=== PATIENT | female | born 1955 | race Caucasian/White ===

== ENCOUNTER 2019-06-26 10:58 | Outpatient (CLI) | payer OTHER, SELFPAY ==
--- NOTE | ~2019-06-26 | MM_ITS ---
EXAMINATION: MM screening caryn BI w miguelito HISTORY: Screening mammogram TECHNIQUE: Craniocaudal and mediolateral oblique 3-D tomosynthesis images were obtained and synthetic 2-D images were generated. CAD analysis was submitted and interpreted. COMPARISON: 05/26/2016, 10/29/2013, 312 BREAST PARENCHYMAL COMPOSITION: The breasts are almost entirely fatty. FINDINGS: There is no evidence of suspicious mass, calcification, or architectural distortion to sugg est malignancy in either breast. There has been no suspicious interval change. IMPRESSION: 1. No mammographic evidence of malignancy. 2. Recommend routine screening mammography in one year. BI-RADS Category 1: Negative Reviewed, dictated and finalized at location A.
== END 2019-06-26 10:59 | disposition home or self-care (01) ==
LOC: ANHIMG 11:00
PROVIDERS: PCP Family Medicine; Visit Provider Family Medicine
DX: Z12.31 Encounter for screening mammogram for malignant neoplasm of breast (principal)
CPT/HCPCS: 77063; 77067

== ENCOUNTER 2019-11-30 07:00 | Outpatient (NON) | payer MEDICARE, SELFPAY ==
[2019-11-30 22:23] LABS: SARS-CoV-2 RNA PCR Negative
== END 2019-11-30 07:01 ==
PROVIDERS: PCP Family Medicine; Visit Provider Family Medicine
DX: Z20.828 Contact with and (suspected) exposure to other viral communicable diseases (principal)
CPT/HCPCS: 87635; C9803; U0003

== ENCOUNTER 2019-12-25 07:55 | Outpatient (CLI) | payer MEDICARE, SELFPAY ==
--- NOTE | ~2019-12-25 | US_ITS ---
EXAMINATION: US right upper quadrant EXAM DATE: 12/25/2019 08:27 INDICATION: Right upper quadrant pain. TECHNIQUE: Multiple grayscale and Doppler images of the abdomen right upper quadrant were obtained (b y a technologist who performed the scan) and subsequently reviewed. There is no prior study for mary miranda. FINDINGS: The pancreatic head and body are normal in appearance. The pancreatic tail is not visualized. There is echogenic liver parenchyma, hepatic steatosis. There are no focal liver lesions identified. Th ere is no evidence of intrahepatic biliary duct dilation. Portal venous flow was seen in the hepatop edal, normal direction and has normal Doppler waveform. No right-sided hydronephrosis. Common bile duct measures 8 mm, which is considered minimally dilated for patient's age. Gallbladder appears distended but is otherwise unremarkable. No cholelithiasis, wall thickening or pericholecyst ic fluid. No sonographic Enamorado's sign was demonstrated. IMPRESSION: 1. Minimally dilated CBD without intrahepatic biliary duct dilation. Probably not clinically signifi cant but that there is elevated bilirubin then further evaluation with CT abdomen recommended. Imaged portion of pancreatic head is sonographically normal. 2. Hepatic steatosis. Reviewed, dictated and finalized at location A. IMPRESSION: 1. Minimally dilated CBD without intrahepatic biliary duct dilation. Probably not clinically significant but that there is elevated bilirubin then further ev aluation with CT abdomen recommended. Imaged portion of pancreatic head is sono graphically normal. 2. Hepatic steatosis.
== END 2019-12-25 07:56 | disposition home or self-care (01) ==
LOC: ANHIMG 08:01
PROVIDERS: PCP Family Medicine; Visit Provider Family Medicine
DX: K76.0 Fatty (change of) liver, not elsewhere classified (principal)
CPT/HCPCS: 76705

== ENCOUNTER 2020-06-03 10:18 | Outpatient (CLI) | payer MEDICARE, SELFPAY ==
--- NOTE | 2020-06-05 12:48 | WPDHOLTEREM ---
Holter/Event Monitor Holter/Event Monitor Date of procedure: 06/03/20 Procedure Type: 24 hour holter monitor Indications: Palpitations Conclusion: 1. 24 hour holter monitor on 06/03/20. 2. Predominant rhythm is sinus rhythm. HR range 52-128 bpm; average HR 74 bpm. 3. There are 36 premature supraventricular complexes and 2 supraventricular couplets. There is one atrial tachycardia at 129 bpm lasting 4 beats. 4. No premature ventricular complexes. No ventricular tachycardia. 5. No sinoatrial or atrioventricular blocks. No significant pauses greater than 2 seconds. 6. Patient reports symptoms of heart beating which demonstrate sinus rhythm, HR range 58-94 bpm.
== END 2020-06-03 10:19 | disposition home or self-care (01) ==
PROVIDERS: PCP Family Medicine; Visit Provider Physician Assistant Medical
DX: R00.2 Palpitations (principal)
CPT/HCPCS: 93225; 93226

== ENCOUNTER 2020-12-15 05:50 | Emergency (ER) | payer MEDICARE, SELFPAY ==
--- NOTE | ~2020-12-15 | CT_ITS ---
EXAMINATION: CT abdomen pelvis wo con DATE: 12/15/2020 07:23 INDICATION: Flank and lower abdominal pain TECHNIQUE: Computed tomography (CT) of the abdomen and pelvis was performed without intravenous contr ast. The dose-length product (DLP) was 787.60 mGy-cm. Automated exposure control and iterative recons truction technique were employed. COMPARISON: None FINDINGS: Minimal dependent atelectasis is present in the lung bases. The heart size is normal. The l iver, spleen, pancreas, and adrenal glands are normal. There is a 3 mm stone in the neck of the gallb ladder. There is a 2 mm nonobstructing stone of the left kidney. Cysts of the kidneys measure up to 1 2 mm on the left. No stones are present in the ureters or bladder. There is no hydronephrosis or hydr oureter. There is calcified atherosclerosis of the aorta and many of the other arteries. No pathologi chaitanya enlarged abdominal or pelvic lymph nodes are identified. The appendix is normal. There is no fr ee intraperitoneal gas or evidence of bowel obstruction. There is mild lumbar spondylosis. There is a tiny umbilical hernia containing fat. IMPRESSION: 1. No CT correlate for the patient's symptoms. No stones in the ureters or bladder and no hydronephro sis or hydroureter. 2. 2 mm nonobstructing left kidney stone. 3. Stone in the gallbladder neck. Correlate for right upper quadrant tenderness. Reviewed, dictated and finalized at location A. IMPRESSION: 1. No CT correlate for the patient's symptoms. No stones in the ureters or blad mari and no hydronephrosis or hydroureter. 2. 2 mm nonobstructing left kidney stone. 3. Stone in the gallbladder neck. Correlate for right upper quadrant tenderness .
[2020-12-15 05:55] VITALS: BP 159/73; PULSE 80; RESP 18; TEMP 36.8; O2SAT 99
[2020-12-15] MEDS: MORPHINE SULFATE (*CRX) 4 MG/ML INJ IV PUSH (06:24)
[2020-12-15] MEDS: ONDANSETRON INJ 4 MG/2 ML VIAL IV PUSH (06:25)
[2020-12-15 06:31] LABS: Basophils Percent Auto 0.4 % (0.2-1.2); Eosinophils Percent Auto 0.2 % (0-4.4); Hematocrit 36.8 % (37.0-47.0); Immature Granulocyte Absolute 0.04 K/mm3 (0.00-0.031); Immature Granulocyte Percent A 0.4 % (0-0.5); Lymphocytes Absolute Auto 1.26 K/mm3 (0.9-3.2); Lymphocytes Percent Auto 12.7 % (18.3-44.2); Mean Corpuscular HGB Conc 32.6 g/dl (32-36); Mean Corpuscular Hemoglobin 29.9 pg (26-34); Mean Corpuscular Volume 91.8 fl (80-100); Mean Platelet Volume 10.3 fl (7.4-10.4); Monocytes Absolute Auto 0.4 K/mm3 (0.1-0.6); Monocytes Percent Auto 3.6 % (2.6-8.5); Neutrophils Absolute Auto 8.2 K/mm3 (1.3-6.7); Neutrophils Percent Auto 82.7 % (45.5-73.1); Platelet Count Result 337 k/mm3 (150-375); Red Blood Count 4.01 M/mm3 (4.2-5.4); Red Cell Distribution Width 12.5 % (11.5-14.5); White Blood Count 9.9 K/mm3 (4.5-10.0)
--- NOTE | 2020-12-15 06:37 | ED.GENADULT ---
HPI - General Adult General Chief complaint: Abdominal Pain <Woody Colorado MD - Last Filed: 12/15/20 06:40> Stated complaint: abd & back pain, chills, vomiting <Woody Colorado MD - Last Filed: 12/15/20 06:40> Time Seen by Provider: 12/15/20 05:53 <Woody Colorado MD - Last Filed: 12/15/20 06:40> History of Present Illness HPI narrative: Patient is a 65-year-old female who presents ER with diffuse abdominal cramping. Began over the last day. Associate with nausea and vomiting. No urinary frequency urgency or dysuria. No diarrhea. Has had this intermittently over the last year. Has not found a cause for it. Originally was treated with omeprazole and improved however when she started it last week after having a bout of this discomfort did not help. Pain will radiate into her back on occasions. No chest pain or chest pressure or shortness of breath. Has not tried any medications this evening. <Woody Colorado MD - Last Filed: 12/15/20 06:40> Related Data Home medications: Home Medications Medication Instructions Recorded Confirmed zinc acetate 50 mg (zinc) capsule 50 mg PO DAILY 05/25/20 08/26/20 cholecalciferol (vitamin D3) 25 25 mcg PO DAILY 08/26/20 08/26/20 mcg (1,000 unit) capsule <Woody Colorado MD - Last Filed: 12/15/20 06:40> Allergies/adverse reactions: Allergies Allergy/AdvReac Type Severity Reaction Status Date / Time codeine AdvReac Unknown Nausea Verified 12/15/20 05:58 <Woody Colorado MD - Last Filed: 12/15/20 06:40> Review of Systems Review of Systems: All systems reviewed & are unremarkable except as noted in HPI and below <Woody Colorado MD - Last Filed: 12/15/20 06:40> Constitutional: Constitutional: Reports chills, Denies fever(s) and Denies weakness <Woody Colorado MD - Last Filed: 12/15/20 06:40> ENT: Denies nasal congestion and Denies sore throat <Woody Colorado MD - Last Filed: 12/15/20 06:40> Cardiovascular: Cardiovascular: Denies chest pain, Denies rapid heart rate and Denies radiating jaw, neck or arm pain <Woody Colorado MD - Last Filed: 12/15/20 06:40> Respiratory: Respiratory: Denies cough and Denies dyspnea <Woody Colorado MD - Last Filed: 12/15/20 06:40> Gastrointestinal: Gastrointestinal: Reports abdominal pain, Reports bloating, Denies constipation, Denies diarrhea, Reports nausea and Reports vomiting <Woody Colorado MD - Last Filed: 12/15/20 06:40> Genitourinary: Genitourinary: Denies nocturia, Denies dysuria and Denies flank pain <Woody Colorado MD - Last Filed: 12/15/20 06:40> PMFSH Past Medical History Medical History: Medical History (Updated 12/15/20 @ 09:07 by Brittany Farooq MD) Esophageal reflux Hyperlipemia Overweight Overweight (BMI 25.0-29.9) Prediabetes SVT (supraventricular tachycardia) <Woody Colorado MD - Last Filed: 12/15/20 06:40> Surgical History Surgical History: Surgical History (Updated 12/15/20 @ 06:39 by Woody Colorado MD) History of tonsillectomy <Woody Colorado MD - Last Filed: 12/15/20 06:40> Family History Family History: Family History Father Diabetes mellitus Hypertension Family history of elevated blood lipids Family history of coronary artery disease Family history of hearing loss Mother Hypertension Family history of elevated blood lipids Family history of hearing loss Sibling Diabetes mellitus <Woody Colorado MD - Last Filed: 12/15/20 06:40> Social History Social History: Social History Smoking end date: 04/17/86 Alcohol intake: current <Woody Colorado MD - Last Filed: 12/15/20 06:40> Exam Narrative: GENERAL: Well-appearing, well-nourished, and in no acute distress. HEAD: Normocephalic, atraumatic. EYES: PERRL and EOMI. CHEST: Clear to auscultation. No respiratory d
[2020-12-15 06:52] LABS: Add Urine Microscopic? YES; Appearance Urine Clear (Clear); Bacteria Urine Trace /hpf; Bilirubin Urine Negative (Negative); Blood Urine Negative (Negative); Color Urine Yellow (Yellow); Glucose Urine UA Negative (Negative); Ketones Urine 1+ mg/dL (Negative); Leukocyte Esterase Ur Negative LEU/UL (Negative); Mucus Urine Few /lpf; Nitrate Urine Negative (Negative); Protein Urine 1+ mg/dL (Negative); RBC Urine 21-50 /hpf (0-2); Specific Grav Ur 1.024 (1.001-1.035); Squamous Epithelial Cell Urine Occasional /hpf (Few); Urobilinogen Urine Negative mg/dL (<2.0); WBC Urine 0-3 /hpf
[2020-12-15 07:02] VITALS: BP 159/73; PULSE 78; RESP 18; O2SAT 97
[2020-12-15 07:08] LABS: Alanine Aminotransferase 15 U/L (4-35); Albumin Level 4.7 g/dL (3.5-5.1); Alkaline Phosphatase 70 U/L (38-126); Anion Gap 11 mmol/L (8-16); Aspartate Amino Transferase 28 U/L (14-36); Bilirubin,Total 0.5 mg/dL (0.2-1.3); Blood Urea Nitrogen 20 mg/dL (7-17); Calcium 9.4 mg/dL (8.4-10.2); Carbon Dioxide 26 mmol/L (22-30); Chloride 101 mmol/L (98-107); Estimated CRCL calculation 64 ml/min; Estimated Glomerular Filt Rate > 60; Glucose 142 mg/dL (65-110); Lipase 147 U/L (23-300); Potassium 3.5 mmol/L (3.4-5.0); Sodium 138 mmol/L (137-145)
[2020-12-15 09:30] VITALS: BP 148/76; PULSE 74; RESP 18; O2SAT 100
== END 2020-12-15 09:33 | disposition home or self-care (01) ==
PROVIDERS: Emergency Medicine; Emergency Provider Emergency Medicine; PCP Family Medicine
DX: R10.9 Unspecified abdominal pain (principal); E78.5 Hyperlipidemia, unspecified; E66.3 Overweight; R73.03 Prediabetes; I47.1 Supraventricular tachycardia; Z87.19 Personal history of other diseases of the digestive system; Z68.25 Body mass index [BMI] 25.0-25.9, adult
CPT/HCPCS: 36415; 74176; 80053; 81001; 83690; 85025; 96374; 96375; 99284; J2270; J2405

== ENCOUNTER 2020-12-23 01:15 | Day surgery (SDC) | payer MEDICARE, SELFPAY ==
[2020-12-22 15:15] VITALS: BMI 26.3
[2020-12-23] VITALS (8 sets, daily range): BP systolic 125–177; BP diastolic 54–72; PULSE 54–83; RESP 15–20; TEMP 36.3–36.7; O2SAT 95–100
[2020-12-23] MEDS: LACTATED RINGERS 1,000 ML 30 ML IV CONT ×2 (07:12→11:51)
[2020-12-23] MEDS: ACETAMINOPHEN 500 MG TABLET 1000 MG PO (08:50)
[2020-12-23] MEDS: KETOROLAC 15 MG/ML VIAL (*BKC) IV PUSH ×2 (09:04→13:03)
[2020-12-23 09:14] LABS: Glucose Point of Care 85 mg/dl (65-105)
--- NOTE | 2020-12-23 09:14 | WPDANESEPPF ---
Anes - Initial Pre Proc Eval Procedure: Operation Date: 12/23/20 10:30 Proposed Procedures p Laparoscopic Cholecystectomy - Romina Jon MD Date/Time: 12/23/20 09:14 Surgeon: Romina Jon MD Pre Op Diagnosis: chronic cholecystitis with cholelithiasis Patient Data Age: 65 Gender: F Height: 1.68 m Weight: 72.4 kg Last Vital Signs Temp 36.7 C 12/23/20 08:35 Pulse 70 12/23/20 08:35 Resp 16 12/23/20 08:35 BP 125/72 12/23/20 08:35 Pulse Ox 100 12/23/20 08:35 Allergies Allergy/AdvReac Type Severity Reaction Status Date / Time codeine AdvReac Unknown Nausea, Verified 12/23/20 08:46 vomiting Home Medications Medication Instructions Recorded Confirmed Type aspirin 81 mg tablet,delayed 81 mg PO DAILY #90 tablet 10/10/19 12/23/20 Rx release fexofenadine 180 mg tablet 180 mg PO DAILY PRN #90 tablet 10/10/19 12/23/20 Rx alprazolam 0.25 mg tablet 0.25 mg PO TID PRN #30 tablet 12/19/19 12/23/20 Rx pantoprazole 40 mg tablet,delayed 40 mg PO QAM #180 tablet 12/07/20 12/23/20 Rx release sucralfate 1 gram tablet 1 g PO Q4H PRN #90 tablet 12/18/20 12/23/20 Rx amoxicillin 500 mg PO TID 12/22/20 12/23/20 History dicyclomine 20 mg PO QID PRN 12/22/20 12/23/20 History metformin 500 mg PO QPM 12/22/20 12/23/20 History simvastatin 10 mg PO HS 12/22/20 12/23/20 History trazodone 100 mg PO HS 12/22/20 12/23/20 History Laboratory Tests 12/23/20 09:12 POC Capillary Glucose Pending Patient hx anesthesia problems: none Family hx anesthesia problems: none PMFSH Past Medical History Medical History (Updated 12/23/20 @ 09:09 by Radha Maya) Esophageal reflux Hyperlipemia Overweight Overweight (BMI 25.0-29.9) Prediabetes SVT (supraventricular tachycardia) Surgical History Surgical History (Updated 12/22/20 @ 13:45 by Marilyn Gonzalez) History of bladder suspension procedure 2006 History of tonsillectomy Family History Family History Father Diabetes mellitus Hypertension Family history of elevated blood lipids Family history of coronary artery disease Family history of hearing loss Parkinson disease Mother Hypertension Family history of elevated blood lipids Family history of hearing loss Sibling Diabetes mellitus Social History Social History (Updated 12/22/20 @ 13:47 by Marilyn Gonzalez) Smoking packs per day: 2.5 Smoking cigarettes per day: 50.0 Years smoked: 20 Smoking pack-years: 50.00 Smoking status: Former smoker Tobacco type: cigarettes Smoking end date: 10/16/87 Alcohol intake: current Substance use: never Living arrangements: with family Additional living arrangements comments: Spiritual care concerns: No Anes - Eval Final PreProcedure Day of Procedure 12/23/20 09:14 Patient weight: overweight Heart: regular rate and rhythm Lungs: clear to auscultation and normal air movement Airway: Mallampati scale class II Neurological: alert and oriented Last oral intake: >/= 8 hours ASA classification: III Emergent: no Anesthetic plan: proceed Anesthesia type and monitoring: general ETT and standard monitoring Informed Consent: The patient's anesthetic plan and its attendant risks and benefits were discussed with the patient/family/POA. Questions were solicited and answers provided to the satisfaction of the patient/family/POA.
[2020-12-23 09:46] LABS: Amylase 94 U/L (30-110)
--- NOTE | 2020-12-23 10:22 | WPDHPUPDATE1 ---
History and Physical Update Update Date/Time: 12/23/20 10:22 History and Physical has been reviewed, including an updated exam of the patient. There are NO changes in the patient's condition. Risks, benefits, and alternatives have been discussed and questions answered. Patient agrees to proceed with procedure.
[2020-12-23] MEDS: ceFAZolin 2 GM/D5W 50 ML 2 GM/50 ML BAG IVPB (10:59)
--- NOTE | 2020-12-23 11:49 | W.PM.PROC2 ---
Procedure Note - Detailed Date of Procedure 12/23/20 Pre-op Diagnosis chronic cholecystitis with cholelithiasis Post-op Diagnosis same Procedure Performed laparoscopic cholecystectomuy Surgeon Romina Jon MD Anesthesia general Indications 65 y/o F c chronic cholecystitis, cholelithiasis Findings chronic cholecystitis Description of Procedure The patient was taken to the operating room placed in the supine position. After adequate induction of general anesthesia, the patient was prepped and draped in normal sterile fashion. A time-out was then performed to verify the patient's identity as well as the procedure being performed. I then made a 5 mm incision in the infraumbilical region. Through this, a Veress needle was placed into the peritoneal cavity and CO2 gas was then insufflated. After adequate pneumoperitoneum was achieved, the Veress needle was removed and a 5 mm optiview trocar was placed through this incision under direct visualization. I then placed the laparoscope through this trocar site and under direct visualization placed a further 12 mm subxiphoid port as well as 2 additional 5 mm ports in the right upper abdomen. The gallbladder was then identified and was noted to be moderately inflamed. I was able to place a grasper at the dome of the gallbladder and this was retracted anterior and cephalad up over the liver. A 2nd retractor was then placed at the infundibulum and retracted laterally, this allowed visualization of the triangle of Calot. I then was able to visualize the cystic duct in its entirety from its proximal insertion into the gallbladder, to its distal junction with the common hepatic/common bile duct junction. At this point, I carefully skeletonized the proximal cystic duct with the [place] dissector. I then clipped and transected the proximal cystic duct. Next I visualized the cystic artery. Again the artery was skeletonized, clipped, and transected. I then used the Bovie cautery to take down the peritoneal attachments of the gallbladder off the liver bed. This was somewhat difficult given the amount of inflammation in the posterior space. Once the gallbladder specimen was completely detached, an endo-pouch was placed through the 12 mm port site. I then placed the gallbladder specimen into the Endo pouch and removed the endo-pouch from the 12 mm port site. The specimen will now be sent to pathology for further review. I then copiously irrigated the right upper quadrant. Hemostasis was noted in the liver bed, the clips were noted to be in good position on both the cystic duct stump and the cystic artery stump. No other pathology was noted in the right upper quadrant. I then moved the laparoscope to the subxiphoid port. No iatrogenic injury or other pathology was noted in the lower abdomen. I then closed the 12 mm trocar site under direct visualization using the Dereje cone and 0 Vicryl suture. At this point, the abdomen was desufflated and all ports removed. All port sites were then closed with 4.O Monocryl subcuticular sutures. Dermabond was placed on each incision. The patient tolerated the procedure well, was extubated in the operating room postoperative and will be transferred to the recovery room in stable condition Estimated Blood Loss 5 Drains No Packing No Pathology yes Complications No immediate complications Condition stable Disposition PACU
[2020-12-23 12:08] LABS: Glucose Point of Care 133 mg/dl (65-105)
[2020-12-23] MEDS: fentaNYL CITRATE INJ (*CRX) 100 MCG/2 ML VIAL 25 MCG IV PUSH (12:24)
[2020-12-23] MEDS: ONDANSETRON HCL ODT 4 MG TABLET SUBLINGUAL (13:47)
== END 2020-12-23 13:54 | disposition home or self-care (01) ==
PROVIDERS: PCP Family Medicine; Visit Provider Surgery
PROC: 0FT44ZZ Resection of Gallbladder, Percutaneous Endoscopic Approach (ICD-10-PCS; CPT 47562; principal; 2020-12-23 10:30)
DX: K81.1 Chronic cholecystitis (principal); E78.5 Hyperlipidemia, unspecified; R73.03 Prediabetes; I47.1 Supraventricular tachycardia; K21.9 Gastro-esophageal reflux disease without esophagitis; Z79.82 Long term (current) use of aspirin; Z79.84 Long term (current) use of oral hypoglycemic drugs; Z87.891 Personal history of nicotine dependence
CPT/HCPCS: 47562; 36415; 82150; 82948; 86850; 86900; 86901; 88304; A9270; J0330; J0690; J1100; J1885; J2250; J2405; J2704; J3010; J7030; J7120

== ENCOUNTER 2020-12-26 08:04 | Emergency (ER) | payer MEDICARE, SELFPAY ==
--- NOTE | ~2020-12-26 | XR_ITS ---
EXAMINATION: XR abdomen/kub 1V EXAM DATE: 12/26/2020 08:58 INDICATION: Gallbladder removal 12/23/20. Abdominal pain, nausea. TECHNIQUE: Frontal projection of the upper abdomen, frontal projection lower abdomen/pelvis for inter pretation. There is no prior study for comparison. FINDINGS: Moderate amount of stool in the ascending colon, otherwise small amount of stool and gas. T here are cholecystectomy clips. No small bowel dilation, nonobstructive bowel gas pattern. Calcifications in the pelvis are believed to be phleboliths. There is no organomegaly suspected. The bones are unremarkable. Chondral cartilage calcifications. IMPRESSION: Unremarkable abdomen x-ray exam. Reviewed, dictated and finalized at location A.
[2020-12-26 08:16] VITALS: BP 139/75; PULSE 93; RESP 20; TEMP 36.8; O2SAT 98
--- NOTE | 2020-12-26 08:42 | ED.NAVMDI ---
HPI - Nausea/Vomiting/Diarrhea General Chief complaint: Nausea/Vomiting/Diarrhea Stated complaint: Complications from Gal bladder surgery Source: patient Mode of arrival: ambulatory Limitations: no limitations History of Present Illness HPI Narrative: Patient is a 65-year-old female who presents with nausea and vomiting. She reports having laparoscopic cholecystectomy on 12/23/[address] Jon. Patient reports pain which has somewhat resolved on with use of tramadol. Patient now reports mild pain and continuous nausea. She reports vomiting multiple times yesterday. Patient has a prescription for Zofran but has not used. She continues to take tramadol for pain. Patient denies having bowel movement post surgery. She reports she has stayed on a very clear liquid diet. She reports taking amoxicillin for blood in urine . MD elicited complaint: nausea and vomiting Related Data Home Medications Medication Instructions Recorded Confirmed amoxicillin 500 mg PO TID 12/22/20 12/26/20 dicyclomine 20 mg PO QID PRN 12/22/20 12/26/20 metformin 500 mg PO QPM 12/22/20 12/26/20 simvastatin 10 mg PO HS 12/22/20 12/26/20 trazodone 100 mg PO HS 12/22/20 12/26/20 Allergies Allergy/AdvReac Type Severity Reaction Status Date / Time codeine AdvReac Unknown Nausea, Verified 12/23/20 08:46 vomiting Review of Systems Review of Systems: CONSTITUTIONAL: Denies fever, chills, or sweats. EYES: Denies visual changes, redness, or discharge. ENT: Denies rhinorrhea, congestion, sore throat, or otalgia. CARDIOVASCULAR: Denies chest pain, palpitations, or edema. RESPIRATORY: Denies cough or dyspnea. GASTROINTESTINAL: Reports abdominal pain, nausea and vomiting GENITOURINARY: Denies dysuria or hematuria. SKIN: Denies rash or itching. MUSCULOSKELETAL: Denies back pain, joint pain, or myalgia. NEUROLOGIC: Denies headache, numbness, dizziness, or weakness. PSYCHIATRIC: Denies anxiety or depression. [facility] Past Medical History Medical History Esophageal reflux Hyperlipemia Overweight Overweight (BMI 25.0-29.9) Prediabetes SVT (supraventricular tachycardia) Surgical History Surgical History History of bladder suspension procedure 2006 History of tonsillectomy Hx laparoscopic cholecystectomy Family History Family History Father Diabetes mellitus Hypertension Family history of elevated blood lipids Family history of coronary artery disease Family history of hearing loss Parkinson disease Mother Hypertension Family history of elevated blood lipids Family history of hearing loss Sibling Diabetes mellitus Social History Social History (Updated 12/22/20 @ 13:47 by Marilyn Gonzalez) Smoking packs per day: 2.5 Smoking cigarettes per day: 50.0 Years smoked: 20 Smoking pack-years: 50.00 Smoking status: Former smoker Tobacco type: cigarettes Smoking end date: 10/16/87 Alcohol intake: current Substance use: never Additional living arrangements comments: Spiritual care concerns: No Comments At the time of signature, I have reviewed and agree with nursing past medical, surgical, social, and family history unless otherwise noted. Please see nursing chart for further information. There is no relevant family history pertinent to the presenting complaint. Exam Narrative: GENERAL: Well-appearing, well-nourished, and in no acute distress. HEAD: Normocephalic, atraumatic. EYES: EOMI. No redness or drainage. Conjunctiva are normal. ENT: Mucous membranes pink and moist. NECK: AROM. Supple. No lymphadenopathy. CHEST: No respiratory distress. HEART: Regular rate and rhythm. GI: Soft, mild tenderness no rebound or guarding. No distention. Bowel sounds hypoactive. MUSCULOSKELETAL: No bony tenderness. EXTREMITIES: N
[2020-12-26] MEDS: ONDANSETRON HCL ODT 4 MG TABLET PO (09:46)
--- NOTE | 2020-12-26 10:52 | PC.NURSE ---
This RN attempted to contact Dr. Arroyo multiple times on exchange at [phone]--number having technical difficulties at this time and disconnected after waiting on hold for approximately 20 minutes and twice. Called physicians personal cell phone number 3 times over the course of an hour before being answered. Called and spoke with warehouse distribution manager, Adriane who confirmed phone numbers twice and let her know that this facility has been attempting to speak with the surgeon transition manager for over an hour. plastic tubing insulation supervisor checked in OR to see if surgeon available at this time, surgeon not in OR when checked, she also checked ICU and did not locate surgeon.
== END 2020-12-26 10:45 | disposition short-term general hospital (02) ==
PROVIDERS: Emergency Provider Nurse Practitioner; PCP Family Medicine
DX: R11.2 Nausea with vomiting, unspecified (principal); G89.18 Other acute postprocedural pain; E78.5 Hyperlipidemia, unspecified; R73.03 Prediabetes
CPT/HCPCS: 74018; 81003; 87086; 99213; A9270; G0463

== ENCOUNTER 2020-12-26 11:21 | Emergency (ER) | payer MEDICARE, SELFPAY ==
[2020-12-26] VITALS (17 sets, daily range): BP systolic 120–168; BP diastolic 66–87; PULSE 74–100; RESP 12–18; TEMP 35.7; O2SAT 94–99
--- NOTE | ~2020-12-26 | CT_ITS ---
EXAMINATION: CT abdomen w con DATE: 12/26/2020 15:02 INDICATION: Abdominal pain and elevated labs post surgical. TECHNIQUE: Computed tomography (CT) of the abdomen and pelvis was performed with 100 cc Omnipaque 350 intravenous contrast. The dose-length product was 565.37 mGy-cm. Automated exposure control and iter ative reconstruction technique were employed. COMPARISON: CT dated 12/15/2020 FINDINGS: Trace right pleural effusion. Right lower lobe atelectasis. There are surgical changes cons istent with right cholecystectomy. Small amount of perihepatic fluid. Small amount of free air. No di screte loculated fluid collection to suggest abscess. Nonobstructive bowel gas pattern. Moderate devin arron distention. Mild atherosclerosis without aneurysm. No lymphadenopathy. The liver, spleen, pancreas, adrenal glands and kidneys are unremarkable. IMPRESSION: 1. Small amount of ascites and free air, likely postoperative status post recent cholecystectomy. 2: Small right pleural effusion with right lower lobe atelectasis. Reviewed, dictated and finalized at location A. IMPRESSION: 1. Small amount of ascites and free air, likely postoperative status post recen t cholecystectomy. 2: Small right pleural effusion with right lower lobe atelectasis.
[2020-12-26 12:00] LABS: Basophils Percent Auto 0.2 % (0.2-1.2); Eosinophils Percent Auto 0.2 % (0-4.4); Hematocrit 37.8 % (37.0-47.0); Hemoglobin 12.1 g/dL (12.0-15.0); Immature Granulocyte Percent A 0.8 % (0-0.5); Lymphocytes Absolute Auto 1.26 K/mm3 (0.9-3.2); Lymphocytes Percent Auto 9.5 % (18.3-44.2); Mean Corpuscular Hemoglobin 29.4 pg (26-34); Monocytes Absolute Auto 0.6 K/mm3 (0.1-0.6); Monocytes Percent Auto 4.8 % (2.6-8.5); Neutrophils Absolute Auto 11.3 K/mm3 (1.3-6.7); Neutrophils Percent Auto 84.5 % (45.5-73.1); Platelet Count Result 526 k/mm3 (150-375); Red Blood Count 4.11 M/mm3 (4.2-5.4); Red Cell Distribution Width 12.4 % (11.5-14.5); White Blood Count 13.3 K/mm3 (4.5-10.0)
[2020-12-26 12:11] LABS: Alanine Aminotransferase 177 U/L (4-35); Albumin Level 4.3 g/dL (3.5-5.1); Alkaline Phosphatase 287 U/L (38-126); Anion Gap 12 mmol/L (8-16); Aspartate Amino Transferase 79 U/L (14-36); Bilirubin,Total 2.4 mg/dL (0.2-1.3); Blood Urea Nitrogen 15 mg/dL (7-17); Calcium 9.5 mg/dL (8.4-10.2); Carbon Dioxide 30 mmol/L (22-30); Chloride 93 mmol/L (98-107); Estimated CRCL calculation 56 ml/min; Estimated Glomerular Filt Rate > 60; Glucose 134 mg/dL (65-110); Lipase 82 U/L (23-300); Potassium 4.2 mmol/L (3.4-5.0); Sodium 135 mmol/L (137-145)
[2020-12-26 12:16] LABS: Add Urine Microscopic? YES; Appearance Urine Clear (Clear); Bacteria Urine Trace /hpf; Bilirubin Urine Negative (Negative); Blood Urine 1+ (Negative); Color Urine Amber (Yellow); Glucose Urine UA Negative (Negative); Ketones Urine 1+ mg/dL (Negative); Leukocyte Esterase Ur Negative LEU/UL (Negative); Mucus Urine Rare /lpf; Nitrate Urine Negative (Negative); Protein Urine 2+ mg/dL (Negative); Specific Grav Ur 1.021 (1.001-1.035); Squamous Epithelial Cell Urine Occasional /hpf (Few); Urobilinogen Urine Negative mg/dL (<2.0)
[2020-12-26] MEDS: ONDANSETRON INJ 4 MG/2 ML VIAL IV PUSH (16:32)
--- NOTE | 2020-12-27 15:23 | ED.GENADULT ---
HPI - General Adult General Chief complaint: Abdominal Pain Stated complaint: abd pain Time Seen by Provider: 12/26/20 14:25 Source: patient Mode of arrival: ambulatory Limitations: no limitations History of Present Illness HPI narrative: Patient postop cholecystectomy 12-23-[address] Jon presents with chief complaint of increased nausea and red reported abdominal pain in the past few days. Patient states that she was told to come to the emergency department for evaluation. Patient denies fever, chills patient has been able to drink some Pedialyte but has been experiencing nausea and some vomiting when she tries to eat foods. Patient denies blockage or changes in bowels or urination. Related Data Home Medications Medication Instructions Recorded Confirmed amoxicillin 500 mg PO TID 12/22/20 12/26/20 dicyclomine 20 mg PO QID PRN 12/22/20 12/26/20 metformin 500 mg PO QPM 12/22/20 12/26/20 simvastatin 10 mg PO HS 12/22/20 12/26/20 trazodone 100 mg PO HS 12/22/20 12/26/20 Allergies Allergy/AdvReac Type Severity Reaction Status Date / Time codeine AdvReac Unknown Nausea, Verified 12/23/20 08:46 vomiting Review of Systems Review of Systems: CONSTITUTIONAL: Denies fever, chills, or sweats. EYES: Denies visual changes, redness, or discharge. ENT: Denies rhinorrhea, congestion, sore throat, or otalgia. CARDIOVASCULAR: Denies chest pain, palpitations, or edema. RESPIRATORY: Denies cough or dyspnea. GASTROINTESTINAL: Reports abdominal pain, nausea, vomiting denies diarrhea. GENITOURINARY: Denies dysuria or hematuria. SKIN: Denies rash or itching. MUSCULOSKELETAL: Denies back pain, joint pain, or myalgia. NEUROLOGIC: Denies headache, numbness, dizziness, or weakness. PSYCHIATRIC: Denies anxiety or depression. [facility] Past Medical History Medical History Esophageal reflux Hyperlipemia Overweight Overweight (BMI 25.0-29.9) Prediabetes SVT (supraventricular tachycardia) Surgical History Surgical History History of bladder suspension procedure 2006 History of tonsillectomy Hx laparoscopic cholecystectomy Family History Family History Father Diabetes mellitus Hypertension Family history of elevated blood lipids Family history of coronary artery disease Family history of hearing loss Parkinson disease Mother Hypertension Family history of elevated blood lipids Family history of hearing loss Sibling Diabetes mellitus Social History Social History (Updated 12/22/20 @ 13:47 by Marilyn Gonzalez) Smoking packs per day: 2.5 Smoking cigarettes per day: 50.0 Years smoked: 20 Smoking pack-years: 50.00 Smoking status: Former smoker Tobacco type: cigarettes Smoking end date: 10/16/87 Alcohol intake: current Substance use: never Additional living arrangements comments: Spiritual care concerns: No Exam Narrative: GENERAL: Well-appearing, well-nourished, and in no acute distress. HEAD: Normocephalic, atraumatic. EYES: PERRLA and EOMI. CHEST: Clear to auscultation. No respiratory distress. No wheezes rales or rhonchi HEART: Regular rate and rhythm. ABDOMEN: Surgical incision masters to the patient's abdomen which appear to be healing well. Soft, tenderness to palpation of right upper quadrant, active bowel sounds. EXTREMITIES: Normal range of motion. No edema. SKIN: Warm, dry, no rash. NEURO: No focal deficits. Alert and oriented x3. PSYCH: Normal mood and affect. Course Vital Signs Vital signs: Vital Signs Temperature 96.2 F L 12/26/20 11:44 Pulse Rate 100 12/26/20 11:44 Respiratory Rate 18 12/26/20 11:44 Blood Pressure 132/76 12/26/20 11:44 Pulse Oximetry 97 12/26/20 11:44 Temperature 96.2 F L 12/26/20 11:44 Pulse Rate 96 12/26/20 18:40 Respiratory Rate 14 12/26/20 18:4
== END 2020-12-26 18:45 | disposition home or self-care (01) ==
PROVIDERS: Emergency Medicine; Emergency Provider Emergency Medicine; PCP Family Medicine
DX: R11.0 Nausea (principal); R10.9 Unspecified abdominal pain; Z98.890 Other specified postprocedural states; E78.5 Hyperlipidemia, unspecified; K21.9 Gastro-esophageal reflux disease without esophagitis; R73.03 Prediabetes; Z79.84 Long term (current) use of oral hypoglycemic drugs; E66.3 Overweight; Z68.25 Body mass index [BMI] 25.0-25.9, adult
CPT/HCPCS: 36415; 74018; 74160; 80053; 81001; 81003; 83690; 85025; 87086; 96374; 99284; A9270; J2405; Q9967

== ENCOUNTER 2020-12-29 08:24 | Outpatient (NON) | payer MEDICARE, SELFPAY ==
[2021-01-01 07:21] LABS: H pylori Ag Stool Not Detected (Not Detected)
== END 2020-12-29 08:25 | disposition home or self-care (01) ==
PROVIDERS: PCP Family Medicine; Visit Provider Surgery
DX: R10.11 Right upper quadrant pain (principal); R11.0 Nausea
CPT/HCPCS: 87338

== ENCOUNTER 2020-12-31 06:46 | Outpatient (CLI) | payer MEDICARE, SELFPAY ==
--- NOTE | ~2020-12-31 | MR_ITS ---
EXAMINATION: MR MRCP wo/w con/w 3D wo ind DATE: 12/31/2020 08:05 INDICATION: Right upper quadrant pain, cholecystectomy TECHNIQUE: Magnetic resonance imaging (MRI) of the abdomen was performed without and with intravenous contrast. Sequences included coronal T2-weighted SS-FSE ARC, coronal T2-weighted FS SS-FSE, coronal T2-weighted 2D FS FIESTA, Water:Coronal LAVA-Flex, sagittal T2-weighted SS-FSE ARC, axial SSFSE ARC, axial 3D DualEcho, axial DWI B=600, axial T1-weighted LAVA, FAT:Coronal LAVA-Flex, and coronal in and opposed phase LAVA-Flex. Thick-slab T2-weighted FRFSE-XL images were obtained for magnetic resonance cholangiopancreatography (MRCP). Maximum intensity projection 3-D reconstructions of the volumetric data were created by the technologist. Postcontrast sequences included a time course of axial T1-weig hted LAVA, FAT:Coronal LAVA-Flex, coronal in and opposed phase LAVA-Flex, and Water:Coronal LAVA-Flex . COMPARISON: CT, 12/26/2020 CONTRAST: Multihance, 14 cc FINDINGS: ABDOMEN MRI: Changes of cholecystectomy are again noted. Right upper quadrant ascites has nearly comp letely resolved since the comparison CT. The liver, spleen, pancreas, and adrenal glands are normal. There is a 13 mm cyst of the left kidney. The right kidney is unremarkable. There are no pathological ly enlarged abdominal lymph nodes. There are no dilated loops of bowel. Respiratory motion artifact l imits the postcontrast sequences. No definite abnormal contrast enhancement is identified. ABDOMEN MRCP: There is no intrahepatic or extrahepatic biliary dilatation. No stones or stricture are identified in the common bile duct. The pancreatic duct is normal in caliber. IMPRESSION: 1. Changes of cholecystectomy without biliary dilatation. Near complete resolution of postoperative a scites. Reviewed, dictated and finalized at location A. IMPRESSION: 1. Changes of cholecystectomy without biliary dilatation. Near complete resolut ion of postoperative ascites.
== END 2020-12-31 06:47 | disposition home or self-care (01) ==
PROVIDERS: PCP Family Medicine; Visit Provider Surgery
DX: R10.11 Right upper quadrant pain (principal); R11.0 Nausea; Z90.49 Acquired absence of other specified parts of digestive tract
CPT/HCPCS: 74183; 76376; A9577

== ENCOUNTER 2021-09-07 15:30 | Outpatient (CLI) | payer MEDICARE, SELFPAY ==
--- NOTE | ~2021-09-07 | DEXA_ITS ---
Bone Density Report Name: JOSEMANUEL WALSH Age: 65 Sex: Female Ethnicity: White Date of : 1955 Indication: postmenopausal; screening for osteoporosis; parental hip fracture; Referring Provider: BULMARO, AVELINO [place] Study: Bone densitometry was performed. Exam Date: September 07, 2021 Accession number: [id number] Bone Density: Region BMD T-score Z-score Classification AP Spine(L1-L4) 0.992 -0.5 1.4 Normal Femoral Neck (Left) 0.915 0.6 2.2 Normal Total Hip (Left) 0.928 -0.1 1.2 Normal Femoral Neck (Right) 0.894 0.4 2.0 Normal Total Hip (Right) 0.931 -0.1 1.2 Normal Total Hip Mean 0.929 -0.1 1.2 Normal World Health Organization criteria for BMD impression classify patients as: Normal (T-score at or above -1.0), Osteopenia (T-score between -1.0 and -2.5), or Osteoporosis (T-score at or below -2.5). 10-year Fracture Risk: FRAX not reported because: All T-scores for Spine Total, Hip Total, Femoral Neck at or above -1.0 Previous Exams: Region Exam Age BMD T-score BMD Change BMD Change Date g/cm2 vs Baseline vs Previous AP Spine (L1-L4) 09/07/2021 65 0.992 -0.5 -0.054 (-5.1%) 0.022 (2.2%) 05/26/2016 60 0.970 -0.7 -0.075 (-7.2%) -0.075 (-7.2%) 07/19/2011 55 1.045 0.0 Total Hip(Left) 09/07/2021 65 0.928 -0.1 -0.111 (-10.7% -0.054 (-5.5%) 05/26/2016 60 0.983 0.3 -0.057 (-5.5%) -0.057 (-5.5%) 07/19/2011 55 1.039 0.8 Total Hip(Right) 09/07/2021 65 0.931 -0.1 -0.106 (-10.2% -0.059 (-6.0%) 05/26/2016 60 0.990 0.4 -0.047 (-4.5%) -0.047 (-4.5%) 07/19/2011 55 1.036 0.8 *Denotes significance at 95% confidence level, LSC for AP Spine = 0.022 g/cm2, LSC for Total Hip = 0.027 g/cm2 # Denotes dissimilar scan types or analysis methods Clinical Information Provided by Patient: Parent has had a hip fracture Has used the following medications: Vitamin D Patient maximum height was 66.5 Menopause Age: 56 Onset of menses at age 12 Number of children 2 Impression: The patient has normal bone mass. The patient has risk factors, including: parental hip fracture. The BMD for the Total Hip(Left) decreased, changing by -5.5% since the last DXA exam. The BMD for the Total Hip(Right) decreased, changing by -6.0% since the last DXA exam. Discussion: BONE DENSITY IS ABOVE THE MINIMUM DESIRABLE LEVEL AT ALL SKELETAL SITES TESTED. This patient?s bone mineral density is above the minimum desirable level ([place]
--- NOTE | ~2021-09-07 | MM_ITS ---
EXAMINATION: MM screening caryn BI w miguelito HISTORY: Screening mammogram TECHNIQUE: Craniocaudal and mediolateral oblique 3-D tomosynthesis images were obtained and synthetic 2-D images were generated. CAD analysis was submitted and interpreted. COMPARISON: 06/26/2019, bilateral screening mammogram examinations BREAST PARENCHYMAL COMPOSITION: The breasts are almost entirely fatty. FINDINGS: There is no evidence of suspicious mass, calcification, or architectural distortion to sugg est malignancy in either breast. There has been no suspicious interval change. IMPRESSION: 1. No mammographic evidence of malignancy. 2. Recommend routine screening mammography in one year. BI-RADS Category 1: Negative Reviewed, dictated and finalized at location A.
== END 2021-09-07 15:31 | disposition home or self-care (01) ==
LOC: ANHIMG 15:32
PROVIDERS: PCP Family Medicine; Visit Provider Physician Assistant Medical
DX: Z12.31 Encounter for screening mammogram for malignant neoplasm of breast (principal); Z78.0 Asymptomatic menopausal state
CPT/HCPCS: 77063; 77067; 77080

== ENCOUNTER 2023-05-18 08:21 | Outpatient (CLI) | payer MEDICARE, OTHER, SELFPAY ==
--- NOTE | ~2023-05-18 | MM_ITS ---
EXAMINATION: MM screening caryn BI w miguelito HISTORY: Screening TECHNIQUE: Craniocaudal and mediolateral oblique 3-D tomosynthesis images were obtained and synthetic 2-D images were generated. CAD analysis was submitted and interpreted. COMPARISON: Comparison to multiple prior studies sequentially, with oldest reviewed study dated 10/29. BREAST PARENCHYMAL COMPOSITION: Not dense: There are scattered areas of fibroglandular density. FINDINGS: There is no evidence of suspicious mass, calcification, or architectural distortion to sugg est malignancy in either breast. There has been no suspicious interval change. IMPRESSION: 1. No mammographic evidence of malignancy. 2. Recommend routine screening mammography in one year. BI-RADS Category 1: Negative. Reviewed, dictated and finalized at location A. TH PLAN ADVISOR
== END 2023-05-18 08:22 | disposition home or self-care (01) ==
PROVIDERS: PCP Family Medicine; Visit Provider Nurse Practitioner Family
DX: Z12.31 Encounter for screening mammogram for malignant neoplasm of breast (principal)
CPT/HCPCS: 77063; 77067

== ENCOUNTER 2023-06-22 08:02 | Outpatient (CLI) | payer MEDICARE, OTHER, SELFPAY ==
--- NOTE | 2023-06-22 08:12 | ECG_ITS ---
Measurements Intervals [place] Rate: 69 P: 36 AR: 156 QRS: 16 QRSD: 93 T: 50 QT: 388 QTc: 418 Interpretive Statements SINUS RHYTHM BASELINE ARTIFACT- I, III, AVR, AVL, AVF, V1-V6 NORMAL ECG NO PREVIOUS ECG AVAILABLE FOR COMPARISON Electronically Signed On 06-22-2023 8:31:54 [place] by Christiano Morris D.O.
[2023-06-22 08:48] LABS: Anion Gap 6 mmol/L (8-16); Blood Urea Nitrogen 18 mg/dL (7-17); Carbon Dioxide 28 mmol/L (22-30); Chloride 108 mmol/L (98-107); Estimated Glomerular Filt Rate 49; Glucose 113 mg/dL (65-110); Potassium 3.8 mmol/L (3.4-5.0); Sodium 142 mmol/L (137-145)
== END 2023-06-22 08:03 | disposition home or self-care (01) ==
LOC: ANHSURGERY 08:07
PROVIDERS: Anesthesiology; PCP Family Medicine; Visit Provider Urology
DX: E78.5 Hyperlipidemia, unspecified (principal)
CPT/HCPCS: 36415; 80048; 93005

== ENCOUNTER 2023-06-26 01:19 | Day surgery (SDC) | payer MEDICARE, OTHER, SELFPAY ==
[2023-06-20 13:22] VITALS: BMI 27.1
--- NOTE | 2023-06-20 13:42 | PC.NURSE ---
Report to the Outpatient Waiting Room, entrance under the green pavilion located off [facility], at time _11:30AM on date ___06/26/23____. Planned Procedure Time: _1:30PM . Time changes happen often and if your time is changed the preop area will call you the afternoon before. - You and your visitor will be asked to self-screen and do not enter if you have any COVID symptoms. - A mask is optional within the hospital at this time. Patients may have clear liquids (water, carbonated beverages, clear teas, apple juice) until 3 hours prior to surgery with a maximum of 20 ounces. - No food from midnight until time of surgery. Take the following medications with a SIP of water the morning of surgery: ___ALPRAZOLAM NEEDED DO NOT STOP ANY OF YOUR OTHER PRESCRIPTION MEDICATIONS PRIOR TO SURGERY ?EXCEPT THE FOLLOWING Medications to discontinue per physician __HOLD ASPIRIN 7 DAYS PRE-OP PER DR SCHREIBER- LAST DOSE 06/18/23 HOLD ALL VITAMINS/SUPPLEMENTS 3 DAYS PRE-OP PER ANESTHESIA- LAST DOSE 06/22/23. Please no make-up, nail japanese, hairspray, perfume, deodorant, or body powder the day of surgery. No jewelry (including any body piercings) or valuables the day of surgery, leave them at home. Please take a shower or bath the night before, or the morning of, surgery with an antibacterial soap. Wear comfortable, loose fitting clothing. - Jewelry must be removed prior to entering the operating room. Rings and piercings that are not removed may be cut off. - The hospital will not accept responsibility for valuables. - Please leave all valuables, including medications, at home the day of surgery. If you are going home after surgery, a licensed buggy driver must drive you home. - NO public transportation without another adult if you receive anesthesia. - We recommend that an adult stay with you for 24 hours following discharge. - We also recommend that you do not drive, make important decision, drink alcoholic beverages, or take any drugs that were not prescribed by your health care provider for at least 24 hours after your discharge time. Follow any additional instructions given to you from your surgeon. If you or anyone in your household have experienced Covid symptoms in the past week, please notify your surgeon or the nurse liaison at the phone number below for possible testing. Telephone instructions given to ____PATIENT and asked if any additional questions and then verbalized understanding. Patient advised to call surgeon office or pre surgery nurse liaison [phone] if any additional questions.
--- NOTE | 2023-06-25 10:18 | PM.IMHP ---
H&P: HPI History of Present Illness Date/Time: 06/25/23 10:19 Chief Complaint: Cystocele Narrative: 67-year-old with symptomatic prolapse. She has occult stress incontinence noted on urodynamics. She has overactive bladder and urge incontinence as well Review of Systems Review of Systems: All systems reviewed & are unremarkable except as noted in HPI and below PMFSH Past Medical History Medical History Esophageal reflux Hyperlipemia Overweight Overweight (BMI 25.0-29.9) Prediabetes SVT (supraventricular tachycardia) Surgical History Surgical History History of bladder suspension procedure 2005 History of tonsillectomy Hx laparoscopic cholecystectomy 12/23/20 Family History Family History Father Diabetes mellitus Hypertension Family history of elevated blood lipids Family history of coronary artery disease Family history of hearing loss Parkinson disease Mother Hypertension Family history of elevated blood lipids Family history of hearing loss Alzheimers disease Sibling Diabetes mellitus Dementia Social History Social History Social History: Caffeine-very little Smoking packs per day: 2 Smoking cigarettes per day: 40.0 Years smoked: 18 Smoking pack-years: 36.00 Smoking status: Former smoker Tobacco type: cigarettes Smoking end date: 04/16/88 Alcohol intake: current Alcohol use details: occasionally Substance use: never Substance use type: does not use Lack of Transportation: No Lack of Food: Never True Current Housing: I Have Housing Concerned About Future Housing: No Difficulty Paying Gas/Electric Bills: No Difficulty Paying for Meds: No Currently Unemployed: No Education: High School Diploma/GED Difficulty w/ Childcare or Family Care: No Living arrangements: with family [facility] Spiritual care concerns: No Meds Home Medications and Allergies Home Medications Medication Instructions Recorded Confirmed Type aspirin 81 mg tablet,delayed 81 mg PO DAILY #90 tabs 10/10/19 06/20/23 Rx release (Adult Low Dose Aspirin) cholecalciferol (vitamin D3) 50 50 mcg PO DAILY 01/22/21 06/20/23 History mcg (2,000 unit) capsule alprazolam 0.25 mg tablet (Xanax) 0.25 mg PO TID PRN anxiety #30 tabs 09/19/22 06/20/23 Rx fluticasone propionate 50 2 spray intranasal DAILY PRN 06/20/23 06/20/23 History mcg/actuation nasal Congestion spray,suspension loratadine 10 mg tablet (Claritin) 10 mg PO DAILY PRN Congestion 06/20/23 06/20/23 History metformin 500 mg tablet,extended 500 mg PO QPM 06/20/23 06/20/23 History release 24 hr simvastatin 10 mg tablet 10 mg PO DAILY 06/20/23 06/20/23 History trazodone 100 mg tablet 100 mg PO HS 06/20/23 06/20/23 History Allergies Allergy/AdvReac Type Severity Reaction Status Date / Time codeine AdvReac Unknown Nausea, Verified 06/20/23 13:16 vomiting Exam Narrative: No acute distress Normal breathing Alert orient x3 Cystocele to the introitus Minimal urethral mobility Assessment and Plan Assessment and plan (1) Cystocele with prolapse: Code(s): N81.4 - Uterovaginal prolapse, unspecified Status: Acute (2) BRAYAN (stress urinary incontinence, female): Code(s): N39.3 - Stress incontinence (female) (male) Status: Acute Plan Plan for cystocele repair with urethral sling. Understands risks of bleeding, infection recurrence of prolapse, persistent prolapse, recurrent or persistent stress incontinence, vaginal mesh extrusion, urinary tract mesh erosion, dyspareunia, mesh related complications including exposure and extrusion. She agrees to proceed.
[2023-06-26] VITALS (8 sets, daily range): BP systolic 129–152; BP diastolic 58–77; PULSE 67–90; RESP 12–14; TEMP 36.6–36.9; O2SAT 96–100
--- NOTE | 2023-06-26 04:37 | WPDHPUPDATE1 ---
History and Physical Update Update Date/Time: 06/26/23 04:37 History and Physical has been reviewed, including an updated exam of the patient. There are NO changes in the patient's condition. Risks, benefits, and alternatives have been discussed and questions answered. Patient agrees to proceed with procedure.
--- NOTE | 2023-06-26 08:06 | WPDANESEPPF ---
Anes - Initial Pre Proc Eval Procedure: Operation Date: 06/26/23 12:30 Proposed Procedures p Cystocele Repair, - Adiel Gilbert MD s Urethral Sling - Adiel Gilbert MD Date/Time: 06/26/23 08:06 Surgeon: Adiel Gilbert MD Pre Op Diagnosis: cystocele, stress incontinence Patient Data Age: 67 Gender: F Height: 1.66 m Weight: 75 kg Allergies Allergy/AdvReac Type Severity Reaction Status Date / Time codeine AdvReac Unknown Nausea, Verified 06/26/23 11:29 vomiting Home Medications Medication Instructions Recorded Confirmed Type aspirin 81 mg tablet,delayed 81 mg PO DAILY #90 tabs 10/10/19 06/20/23 Rx release (Adult Low Dose Aspirin) cholecalciferol (vitamin D3) 50 50 mcg PO DAILY 01/22/21 06/20/23 History mcg (2,000 unit) capsule alprazolam 0.25 mg tablet (Xanax) 0.25 mg PO TID PRN anxiety #30 tabs 09/19/22 06/26/23 Rx fluticasone propionate 50 2 spray intranasal DAILY PRN 06/20/23 06/20/23 History mcg/actuation nasal Congestion spray,suspension loratadine 10 mg tablet (Claritin) 10 mg PO DAILY PRN Congestion 06/20/23 06/20/23 History metformin 500 mg tablet,extended 500 mg PO QPM 06/20/23 06/20/23 History release 24 hr simvastatin 10 mg tablet 10 mg PO DAILY 06/20/23 06/20/23 History trazodone 100 mg tablet 100 mg PO HS 06/20/23 06/20/23 History Patient hx anesthesia problems: none Family hx anesthesia problems: none Results Review: All pre-operative results and documents have been reviewed as part of the pre-operative evaluation. [facility] Past Medical History Medical History Esophageal reflux Hyperlipemia Overweight Overweight (BMI 25.0-29.9) Prediabetes SVT (supraventricular tachycardia) Surgical History Surgical History History of bladder suspension procedure 2005 History of tonsillectomy Hx laparoscopic cholecystectomy 12/23/20 Family History Family History Father Diabetes mellitus Hypertension Family history of elevated blood lipids Family history of coronary artery disease Family history of hearing loss Parkinson disease Mother Hypertension Family history of elevated blood lipids Family history of hearing loss Alzheimers disease Sibling Diabetes mellitus Dementia Social History Social History Social History: Caffeine-very little Smoking packs per day: 2 Smoking cigarettes per day: 40.0 Years smoked: 18 Smoking pack-years: 36.00 Smoking status: Former smoker Tobacco type: cigarettes Smoking end date: 04/16/88 Alcohol intake: current Alcohol use details: occasionally Substance use: never Substance use type: does not use Lack of Transportation: No Lack of Food: Never True Current Housing: I Have Housing Concerned About Future Housing: No Difficulty Paying Gas/Electric Bills: No Difficulty Paying for Meds: No Currently Unemployed: No Education: High School Diploma/GED Difficulty w/ Childcare or Family Care: No Living arrangements: with family Additional living arrangements comments: [facility] Spiritual care concerns: No Anes - Eval Final PreProcedure Day of Procedure 06/26/23 08:06 Patient weight: overweight Heart: regular rate and rhythm Lungs: clear to auscultation Airway: Mallampati scale class II Neurological: alert and oriented Last oral intake: >/= 8 hours ASA classification: III Emergent: no Anesthetic plan: proceed Anesthesia type and monitoring: general LMA and standard monitoring Results Review: All pre-operative results and documents have been reviewed as part of the pre-operative evaluation. Informed Consent: The patient's anesthetic plan and its attendant risks and benefits were discussed with the patient/family/POA. Questions were solicited
[2023-06-26 11:21] LABS: Glucose Point of Care 91 mg/dl (65-105)
[2023-06-26] MEDS: LACTATED RINGERS 1,000 ML 30 ML IV CONT (11:29)
[2023-06-26] MEDS: ceFAZolin 2 GM/D5W 50 ML 2 GM/50 ML BAG IVPB (13:25)
[2023-06-26] MEDS: BUPIVACAINE/EPINEPHRINE 0.5% 50 ML VIAL 20 ML INFILTRATE (13:53)
[2023-06-26 14:53] LABS: Glucose Point of Care 98 mg/dl (65-105)
--- NOTE | 2023-06-26 14:56 | W.PM.PROC2 ---
Procedure Note - Detailed Date of Procedure 06/26/23 Pre-op Diagnosis cystocele, stress incontinence Post-op Diagnosis Other (cystocele, stress incontinence, exposed vaginal mesh) Procedure Performed cystocele repair, urethral sling, excision of exposed urethral sling Surgeon Adiel Gilbert MD Anesthesia General and Local Indications Still with symptomatic cystocele. She has occult stress incontinence on urodynamics. She presents for the above. She understands risks of bleeding, infection, damage surrounding organs, damage to your tract, vaginal mesh extrusion, urinary tract mesh erosion, obstructive voiding with cardiac procedure, hip and leg pain, dyspareunia she agrees to proceed Findings she had evidence of previous urethral sling. It was distal in the vagina near the meatus. There was an area of mesh exposure which was excised Description of Procedure she was correctly identified. Informed consent obtained. she is from the operating room. She was given general anesthesia. She was placed in dorsal lithotomy position. She was prepped draped sterile fashion. Time-out performed. I placed Lee catheter. I placed a [place] retractor. She had a cystocele to the level of the introitus. On further exam she also had an area which appeared to be a mesh exposure near the meatus. I was unaware of previous urethral sling procedure. There was some stone-like material on this area of mesh exposure. I 1st focused on the cystocele. I grasped the cystocele with Allis clamps. I infiltrated subcutaneous tissues with local mixed with epinephrine. I made a midline vaginal incision. I dissected out laterally taking great care not to injure the urethra the vaginal wall. I dissected out laterally and towards the apex. I then performed a standard plication cystocele repair. I used 0 Vicryl suture in interrupted fashion. I took great care not to injure underlying organs. I then trimmed excess vaginal mucosa. I closed the vaginal mucosa running 2-0 Vicryl suture. There was excellent reduction of the cystocele. there was excellent hemostasis I then turned my attention towards the sling prior to the procedure. I re-examined the anterior vaginal wall. Very close to the meatus there was an area of mesh exposure from a previous urethral sling. This was unknown to me. There was some stony material on the sling. It was definitely more distal than a sling should be placed. I grasped the area of exposure and excised it. There is no further exposure. I closed the mucosa with an interrupted Vicryl suture. I then marked at the side then a thigh incisions. I anesthetized skin and made those incisions. I then anesthetized the anterior vaginal wall the mid urethra. I made 1 cm incision. I dissected out laterally taking great care not to injure the urethra the vaginal wall. I passed the helical trocars. I did this 1st the left and then on the right. This from the thigh incision towards the vaginal incision. Sling was connected to the trocars and brought out through the thigh incision. I tensioned appropriately. I cut and removed the plastic sheaths. I then closed the incision with 2-0 Vicryl. on cystoscopy she had no tumors or other bladder abnormalities. No surgical artifact the bladder urethra. I passed guidewires up both ureters to confirm patency. The left catheter out. Excess sling material was cut and incisions were closed with glue. She was awakened transferred to PACU stable condition Implants urethral sling Estimated Blood Loss 20 Drains No Packing No Pathology None sent Complications No immediate complications Disposition PACU
[2023-06-26] MEDS: oxyCODONE HCL (*CRX) 5 MG TAB IR PO (16:04)
== END 2023-06-26 16:24 | disposition home or self-care (01) ==
PROVIDERS: PCP Family Medicine; Visit Provider Urology
PROC: (CPT 57240; principal; 2023-06-26 12:30)
PROC: (CPT 57288; 2023-06-26 12:30)
DX: N81.4 Uterovaginal prolapse, unspecified (principal); N39.3 Stress incontinence (female) (male); T83.711A Erosion of implanted vaginal mesh to surrounding organ or tissue, initial encounter; Y83.8 Other surgical procedures as the cause of abnormal reaction of the patient, or of later complication, without mention of misadventure at the time of the procedure; E78.5 Hyperlipidemia, unspecified; R73.03 Prediabetes; I47.10 Supraventricular tachycardia, unspecified; Z79.51 Long term (current) use of inhaled steroids; Z79.84 Long term (current) use of oral hypoglycemic drugs; Z98.890 Other specified postprocedural states; Z90.49 Acquired absence of other specified parts of digestive tract; Z87.891 Personal history of nicotine dependence; Z82.49 Family history of ischemic heart disease and other diseases of the circulatory system
CPT/HCPCS: 57288; 57240; 57295; 82948; 88300; A9270; C1758; C1769; C1771; J0690; J1100; J2250; J2371; J2405; J2704; J3010; J7030; J7120

== ENCOUNTER 2024-06-10 13:41 | Outpatient (CLI) | payer MEDICARE, OTHER, SELFPAY ==
--- NOTE | ~2024-06-10 | MM_ITS ---
EXAMINATION: MM screening caryn BI w miguelito HISTORY: Screening mammogram TECHNIQUE: Craniocaudal and mediolateral oblique 3-D tomosynthesis images were obtained and synthetic 2-D images were generated. CAD analysis was submitted and interpreted. COMPARISON: 05/18/2023, 09/07/2021 BREAST PARENCHYMAL COMPOSITION:Not Dense. The breasts are almost entirely fatty FINDINGS: No suspicious mass, calcification, or architectural distortion are identified in either ryne ast to suggest malignancy. There has been no suspicious interval change. IMPRESSION: No mammographic evidence of malignancy. Recommend routine screening mammography in one year. BI-RADS Category 1: Negative Reviewed, dictated and finalized at location . [employer]
== END 2024-06-10 13:42 | disposition home or self-care (01) ==
LOC: ANHIMG 13:43
PROVIDERS: PCP Family Medicine; Visit Provider Nurse Practitioner Family
DX: Z12.31 Encounter for screening mammogram for malignant neoplasm of breast (principal)
CPT/HCPCS: 77063; 77067

== ENCOUNTER 2024-10-22 15:12 | Outpatient (CLI) | payer MEDICARE, OTHER, SELFPAY ==
--- NOTE | ~2024-10-22 | XR_ITS ---
HISTORY: M25.531 - Pain in right wrist COMPARISON: None TECHNIQUE: 3 views of the right wrist were performed. FINDINGS: No acute fracture is identified. The carpal arcs are intact. Mild radiocarpal joint space narrowing with sclerosis of the distal radius is present. The remaining visualized joint spaces are otherwise preserved. Periarticular osteopenia is identified suggesting osteoarthritis. Severe degenerative disease within the first carpometacarpal joint space. No significant soft tissue swelling is noted. No radiopaque foreign body is identified. IMPRESSION: Findings suggesting osteoarthritis, as detailed above. Reviewed, dictated and finalized at location A.
--- NOTE | ~2024-10-22 | XR_ITS ---
Right foot Technique: AP, oblique, and lateral views were obtained. Clinical History: Injury Findings: There is acute oblique fracture of the fifth proximal phalanx at the mid shaft. Fracture is mildly displaced. No other fracture or dislocation seen. Plantar calcaneal spur noted. Joint spaces are preserved without erosive or degenerative change. Soft tissues are unremarkable. Impression: Acute fracture the fifth proximal phalanx, as detailed above. Reviewed, dictated and finalized at location M. Impression: Acute fracture the fifth proximal phalanx, as detailed above.
== END 2024-10-22 15:13 | disposition home or self-care (01) ==
LOC: GOSHIMG 15:13
PROVIDERS: PCP Family Medicine; Visit Provider Student in an Organized Health Care Education/Training Program
DX: M18.11 Unilateral primary osteoarthritis of first carpometacarpal joint, right hand (principal); S92.511A Displaced fracture of proximal phalanx of right lesser toe(s), initial encounter for closed fracture; X58.XXXA Exposure to other specified factors, initial encounter
CPT/HCPCS: 73110; 73630